=== PATIENT | male | born 1950 | race Caucasian/White ===

== ENCOUNTER 2018-02-25 13:39 | Emergency (ER) | payer MEDICARE ==
[2018-02-25 15:17] LABS: #Eosinphils 0.1 thou/uL (0.0-0.7); #Lymphocytes 0.9 thou/uL (1.20-3.40); #Monocytes 0.5 thou/uL (0.11-0.59); #Neutrophils 7.1 thou/uL (1.40-6.50); %Basophils 0.3 % (0.0-1.0); %Eosinophils 0.6 % (0.0-10.0); %Lymphocytes 9.9 % (21.0-51.0); %Neutrophils 83.1 % (42.0-75.0); Hemoglobin 14.4 g/dL (14.0-18.0); Mean Corpuscular Hemoglobin 30.6 pg (27.0-31.0); Mean Platelet Volume 7.1 fL (7.4-10.4); Platelet Count 188 thou/uL (130-400); RBC Distribution Width 11.8 % (11.5-14.5); White Blood Cell (WBC) Count 8.6 thou/uL (4.8-10.8)
[2018-02-25 15:23] LABS: Bilirubin Negative (Negative); Blood, Urine Negative (Negative); Clarity CLEAR (Clear); Glucose, Urine (Dipstick) Negative (Negative); Leukocyte Negative (Negative); Nitrite Negative (Negative); Protein, Urine (Dipstick) Negative (Neg-Trace); Specific Gravity, Urine 1.021 (1.002-1.036); pH, Urine 6.5 (5.0-9.0)
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
[2018-02-25 15:42] LABS: ALT (SGPT) 13 U/L (8-55); AST (SGOT) 15 U/L (5-34); Albumin 4.1 g/dL (3.4-4.8); Alkaline Phosphatase 62 U/L (40-150); Anion Gap 11 mmol/L (10-20); BUN (Urea Nitrogen) 17 mg/dL (8.4-25.7); Bilirubin, Total 0.6 mg/dL (0.2-1.2); Calc. Creatinine Clearance 0 mL/min (70-130); Calcium 8.7 mg/dL (7.8-10.44); Carbon Dioxide 28 mmol/L (23-31); Chloride 102 mmol/L (98-107); Estimated GFR-MDRD 86; Globulin 2.1 g/dL (2.4-3.5); Glucose 166 mg/dL (80-115); Lipase 12 U/L (8-78); Potassium 4.2 mmol/L (3.5-5.1); Protein, Total 6.2 g/dL (5.8-8.1); Sodium 137 mmol/L (136-145)
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
[2018-02-25 16:26] LABS: CKMB 1.3 ng/mL (0-6.6); Troponin I Less than 0.010 ng/mL (< 0.028)
--- NOTE | 2018-02-28 11:49 | EKG ---
Test Reason : Blood Pressure : / mmHG Vent. Rate : 051 BPM Atrial Rate : 051 BPM P-R Int : 138 ms QRS Dur : 082 ms QT Int : 462 ms P-R-T Axes : 076 072 073 degrees QTc Int : 425 ms Sinus bradycardia Otherwise normal ECG Confirmed by ABELINO HODGE DO ([id number]), visual effects editor HILLARY JONES ([id number]) on 02/28/2018 11:49:14 AM Referred By: Confirmed By:ABELINO HODGE DO
== END 2018-02-25 16:46 | disposition home or self-care (01) ==
LOC: ERS 13:39
DX: M54.2 Cervicalgia (principal); R42 Dizziness and giddiness; E78.5 Hyperlipidemia, unspecified; F03.90 Unspecified dementia, unspecified severity, without behavioral disturbance, psychotic disturbance, mood disturbance, and anxiety; F32.9 Major depressive disorder, single episode, unspecified; Z87.891 Personal history of nicotine dependence; V43.62XA Car passenger injured in collision with other type car in traffic accident, initial encounter
CPT/HCPCS: 36415; 70450; 71045; 80053; 81003; 82553; 83690; 84484; 85025; 93005

== ENCOUNTER 2019-02-28 12:35 | Observation (INO) | payer MEDICARE ==
[~2019-02-28 12:35] MED LIST: ISOVUE-370 76%-LOCM 1 ML ONE
[2019-02-28 13:05] LABS: #Lymphocytes 0.8 thou/uL (1.20-3.40); #Monocytes 0.6 thou/uL (0.11-0.59); #Neutrophils 6.9 thou/uL (1.40-6.50); %Basophils 0.3 % (0.0-1.0); %Eosinophils 0.5 % (0.0-10.0); %Lymphocytes 9.8 % (21.0-51.0); %Monocytes 6.8 % (0.0-10.0); %Neutrophils 82.5 % (42.0-75.0); Hemoglobin 15.2 g/dL (14.0-18.0); Mean Corpuscular HGB CONC 33.5 g/dL (32.0-36.0); Mean Corpuscular Hemoglobin 30.6 pg (27.0-31.0); Mean Corpuscular Volume 91.4 fL (78.0-98.0); Mean Platelet Volume 7.2 fL (7.4-10.4); Platelet Count 251 thou/uL (130-400); RBC Distribution Width 12.1 % (11.5-14.5); Red Blood Cell (RBC) Count 4.95 mill/uL (4.70-6.10); White Blood Cell (WBC) Count 8.4 thou/uL (4.8-10.8)
--- NOTE | 2019-02-28 13:27 | RAD ---
PORTABLE CHEST 1 VIEW: Date: 02/28/19 Time 1241 hours HISTORY: Chest pain. FINDINGS: Comparison made with exam of 02/25/18. The heart size is normal. The lungs are expanded without focal areas of consolidation, pneumothoraces , or pleural effusions. There are degenerative changes in the spine. IMPRESSION: No acute process. POS: [facility]
[2019-02-28 13:53] LABS: ALT (SGPT) 19 U/L (8-55); AST (SGOT) 31 U/L (5-34); Albumin 4.6 g/dL (3.4-4.8); Alkaline Phosphatase 66 U/L (40-150); Anion Gap 14 mmol/L (10-20); BUN (Urea Nitrogen) 13 mg/dL (8.4-25.7); Bilirubin, Total 0.8 mg/dL (0.2-1.2); Calc. Creatinine Clearance 0 mL/min (70-130); Calcium 9.5 mg/dL (7.8-10.44); Carbon Dioxide 26 mmol/L (23-31); Chloride 101 mmol/L (98-107); Estimated GFR-MDRD 90; Globulin 2.9 g/dL (2.4-3.5); Glucose 88 mg/dL (80-115); Potassium 4.7 mmol/L (3.5-5.1); Protein, Total 7.5 g/dL (5.8-8.1); Sodium 136 mmol/L (136-145)
--- NOTE | 2019-02-28 14:25 | CT ---
CTA of the chest and abdomen utilizing an aortic dissection protocol and 3-D reformatted imaging INDICATION: Chest pain COMPARISON: CT of the thorax dated March 13, [address] the abdomen and pelvis dated November 22 15 FINDINGS: Aorta: No acute aortic stenosis, occlusion or aneurysmal formation demonstrated. Central pulmonary artery: No central pulmonary embolus demonstrated. Additional thorax findings: Scattered emphysema. Stable 5 mm pulmonary nodule in the right upper lobe adjacent to the right minor fissure. 3 millimeter pulmonary nodule left upper lobe is stable to comparison dated 03/13/2017 Additional abdominal findings: Slight interval enlargement of the left hepatic cyst now measuring 9 m m. Osseous structures: No acute fracture or subluxation demonstrated. There is scattered degenerative an d osteoarthritic change present. IMPRESSION: 1. No appreciable aortic stenosis, occlusion or aneurysmal formation demonstrated. 2. Scattered emphysema and small pulmonary nodules. 3. Left hepatic lobe cyst
[2019-02-28 14:36] LABS: Bilirubin Negative (Negative); Blood, Urine Negative (Negative); Clarity Turbid (Clear); Glucose, Urine (Dipstick) Normal (Negative); Leukocyte Negative Leu/uL (Negative); Nitrite Negative (Negative); Protein, Urine (Dipstick) Negative (Neg-Trace)
[2019-02-28] MEDS ORDERED: Aspirin Chewable 81 MG TAB ONE (14:57)
[2019-02-28 16:39] LABS: Troponin I Less than 0.010 ng/mL (< 0.028)
[2019-02-28] MEDS ORDERED: Acetaminophen 325 MG TAB PO PRN (17:49)
[2019-02-28] MEDS ORDERED: Ondansetron ODT 4 MG TAB SL PRN (17:49)
[2019-02-28] MEDS ORDERED: Ondansetron PF 4 MG/2 ML Vial IVP PRN (17:49)
[2019-02-28 17:58] VITALS: BMI 19.8
[2019-02-28] MEDS ORDERED: Acetaminophen 650 MG Suppository PR PRN (18:40)
[2019-02-28] MEDS: Tamsulosin HCl 0.4 MG CAP PO SCH (20:23)
[2019-02-28] MEDS: Famotidine 20 MG TAB PO SCH (20:24)
[2019-02-28] MEDS: Senokot S 8.6-50 MG TAB PO SCH (20:25)
[2019-02-28 20:37] LABS: Troponin I Less than 0.010 ng/mL (< 0.028)
[2019-02-28] MEDS ORDERED: Simvastatin 20 MG TAB PO SCH (21:00)
[2019-02-28] MEDS ORDERED: Atorvastatin Calcium 10 MG TAB PO SCH (21:00)
[2019-02-28] MEDS ORDERED: Aspirin 81 mg Enteric Coated Tablet PO SCH (21:00)
--- NOTE | 2019-03-01 04:52 | HP ---
CHIEF COMPLAINT: Chest pain. HISTORY OF PRESENT ILLNESS: Mr. Serrano is a very pleasant 68-year-old man who presents complaining of intermittent chest pain. He states it was more prominent this morning, but has been occurring intermittently. He reports having chest pain for the last several weeks to a month. He has noted progressive worsening. He states the pain has subsided since arriving to the emergency department. He reports having no shortness of breath. No nausea or vomiting. No lightheaded or dizziness. Denies any lower extremity edema. He denies experiencing any pain like this in the past. In the emergency department, the patient underwent investigations including a chest x-ray that showed no acute process. He had a CT dissection that showed no appreciable aortic stenosis, occlusion or aneurysmal formation. There was scattered emphysema and small pulmonary nodules. He was also noted to have left hepatic lobe cyst. Laboratory studies were done showing a normal full blood count. Electrolytes unremarkable. LFTs normal and troponin negative x3. Urinalysis was done, showing no evidence of UTI. In the emergency department, he also underwent an EKG which showed normal sinus rhythm with a heart rate of 71. ST segments are normal as well as normal T-waves. The patient was treated with aspirin 324 mg and referred for admission. PAST MEDICAL HISTORY: 1. Parkinson's disease. 2. Hyperlipidemia. 3. Dementia. 4. Depression. PAST SURGICAL HISTORY: Right arm surgery. SOCIAL HISTORY: The patient denies any alcohol use or drug use. He denies any current tobacco use, but smoked more than 10 years ago. PHYSICAL EXAMINATION: GENERAL: The patient appears thin, frail, well developed, and in no acute distress. VITAL SIGNS: Temperature 97.8, pulse 67, respirations 14, O2 saturation 96% on room air, blood pressure 142/75. HEENT: Normocephalic and atraumatic. Pupils are equal, round, and reactive to light. Sclerae without icterus. Oropharynx is clear. NECK: Supple without lymphadenopathy. LUNGS: Clear bilaterally without wheezes, rales, or rhonchi. CARDIAC: Regular rate and rhythm. ABDOMEN: Soft, nontender, and nondistended. Normoactive bowel sounds present. EXTREMITIES: Without any lower leg swelling or edema. NEUROLOGIC: Alert and oriented x3. SKIN: Without rash or jaundice. IMPRESSION AND PLAN: Mr. Serrano is a 68-year-old man with a history of Parkinson disease, dementia, and hyperlipidemia, who presented with complaints of chest pain. The patient states he has been having some pain in the last few days, but he also reports some back discomfort. He has been referred for management of the following; 1. Acute coronary syndrome rule out. We will continue to trend troponins. He has not undergone any cardiac investigations in the past. He does have risk factors. We will request an echo and a stress test in the morning. We will check lipid panel, vitamin B12, and folate as well as a TSH with morning labs. 2. Hypertension. Resume home medications once verified. Monitor blood pressure. 3. Parkinson's. Resume home medications. 4. Gastrointestinal prophylaxis. 5. Deep venous thrombosis prophylaxis with mechanical sequential compression devices. 6. Code status, cardiac only. The patient's surrogate decision maker is his , Juli Serrano. The patient's case discussed with attending who agrees with plan of care as described above. Job ID: [id number]
[2019-03-01 05:27] LABS: #Eosinphils 0.1 thou/uL (0.0-0.7); #Lymphocytes 1.1 thou/uL (1.20-3.40); #Monocytes 0.6 thou/uL (0.11-0.59); #Neutrophils 4.8 thou/uL (1.40-6.50); %Basophils 0.6 % (0.0-1.0); %Eosinophils 1.8 % (0.0-10.0); %Lymphocytes 17.1 % (21.0-51.0); %Monocytes 8.6 % (0.0-10.0); %Neutrophils 71.9 % (42.0-75.0); Hemoglobin 14.9 g/dL (14.0-18.0); Mean Corpuscular HGB CONC 33.8 g/dL (32.0-36.0); Mean Corpuscular Volume 91.7 fL (78.0-98.0); Mean Platelet Volume 6.9 fL (7.4-10.4); Platelet Count 226 thou/uL (130-400); RBC Distribution Width 12.1 % (11.5-14.5); Red Blood Cell (RBC) Count 4.79 mill/uL (4.70-6.10); White Blood Cell (WBC) Count 6.7 thou/uL (4.8-10.8)
[2019-03-01 05:51] LABS: Anion Gap 11 mmol/L (10-20); BUN (Urea Nitrogen) 15 mg/dL (8.4-25.7); Calc. Creatinine Clearance 61 mL/min (70-130); Calcium 9.1 mg/dL (7.8-10.44); Carbon Dioxide 27 mmol/L (23-31); Cardiac Risk 2.3 (Less than 4.5); Chloride 103 mmol/L (98-107); Cholesterol 138 mg/dl (< 200 Desired); Estimated GFR-MDRD Greater than 90; Glucose 89 mg/dL (80-115); HDL Cholesterol 60 mg/dL (>60 Neg Risk); LDL Cholesterol, Calculated 66 mg/dL; Potassium 4.2 mmol/L (3.5-5.1); Sodium 137 mmol/L (136-145); Triglycerides 61 mg/dL (Less than 150)
[2019-03-01 06:24] LABS: Folate (Folic Acid) 16.7 ng/mL (7.0-31.4)
[2019-03-01 08:32] VITALS: TEMP 97.8
--- NOTE | 2019-03-01 12:29 | NM ---
EXAM: CARDIAC SPECT HISTORY: Chest pain, dyslipidemia, smoking TECHNIQUE: A myocardial perfusion scan was performed using the single isotope 1 day protocol with chun hnetium 99m sestamibi. [10 mCi] was injected intravenously for the rest exam followed by 30 mCi for the stress study. Pharmacologic stress with adenosine was monitored and interpreted by Dr. Ellison FINDINGS: Homogeneous tracer distribution is seen in the myocardial segments on stress and rest image s without fixed or reversible defects. Gated SPECT LVEF: 61% Wall motion exam: Normal IMPRESSION: Normal myocardial perfusion scan
[2019-03-01] MEDS: Tamsulosin HCl 0.4 MG CAP PO SCH (13:01)
[2019-03-01] MEDS: Famotidine 20 MG TAB PO SCH (13:01)
[2019-03-01] MEDS: Senokot S 8.6-50 MG TAB PO SCH (13:02)
[2019-03-01 13:09] VITALS: BP 162/84
[2019-03-01] MEDS ORDERED: ADENOSINE 60 MG/20 ML VIAL ONE (15:54)
--- NOTE | 2019-03-01 20:11 | DIS ---
DATE OF ADMISSION: 02/28/2019 DATE OF DISCHARGE: 03/01/2019 CHIEF COMPLAINT: On admission: Chest pain. DISCHARGE DIAGNOSES: 1. Chest pain, resolved, acute coronary syndrome ruled out, MPI negative for reversible ischemia with normal EF. 2. Hypertension. 3. Hyperlipidemia. 4. Dementia. 5. Parkinson disease. BRIEF HOSPITAL COURSE: Mr. Serrano is a pleasant 68-year-old gentleman with past medical history significant for hypertension, hyperlipidemia, who presented to the hospital with complaints of some intermittent chest pain. Chest pain seemed to come on after the patient was doing work outside with his daughter. The patient reports no shortness of breath, nausea, or diaphoresis with his chest discomfort. Given his risk factors, he was admitted for ACS rule out, as well as nuclear stress test. All of his cardiac enzymes were normal. His lab work was largely unremarkable, showed negative BNP and normal chemistry along with negative enzymes. Given his risk factors, he did undergo a nuclear stress test, which showed no evidence of reversible ischemia as well as normal left ventricular systolic function with EF estimated at 61%. The patient has had no chest pain since his hospitalization. He has no complaints to me today. Results pending at time of discharge of echocardiogram. CONDITION AT DISCHARGE: Stable. FOLLOWUP AND DISCHARGE INSTRUCTIONS: The patient will be discharged home in good condition today. I have talked with the patient and his daughter and they will follow up with their primary care physician, Dr. Jackson and echocardiogram results. The patient has no audible murmur, and normal EF along with normal BNP. He will continue aggressive risk factor modification including watching his blood pressure and cholesterol. I have described other possible etiologies for his chest pain including GI and musculoskeletal. Certainly, if he continues to have chest discomfort, he may need Cardiology referral as an outpatient, but again his stress test was negative here and he has had no further chest discomfort. The patient will be discharged home in good condition today, will return to the emergency department with any worsening of symptoms. Job ID: [id number]
== END 2019-03-01 14:27 | disposition home or self-care (01) ==
LOC: ERS 12:35 → 2SW 15:20
PROVIDERS: ADMIT Internal Medicine; ATTEND Internal Medicine
DX: R07.89 Other chest pain (principal); I10 Essential (primary) hypertension; E78.5 Hyperlipidemia, unspecified; G20 Parkinson's disease; F03.90 Unspecified dementia, unspecified severity, without behavioral disturbance, psychotic disturbance, mood disturbance, and anxiety; Z79.82 Long term (current) use of aspirin; Z79.899 Other long term (current) drug therapy; Z87.891 Personal history of nicotine dependence
CPT/HCPCS: 71045; 71275; 78452; 80048; 80053; 80061; 81003; 82607; 82746; 83735; 83880; 84443; 84484 ×2; 85025 ×2; 93005; 93017; 93306; 97139; 99285; A9500; G0378 ×3; 36415; J0153; Q9966